=== PATIENT | male | born 1985 | race Caucasian/White ===

== ENCOUNTER 2016-11-05 17:30 | Emergency (ER) | payer MEDICAID ==
[~2016-11-05] VITALS: Ht 175.3 cm; Wt 81.6 kg
[2016-11-05 17:32] VITALS: BP 141/81; PULSE 70; RESP 18; TEMP 98.3; O2SAT 100
[2016-11-05] MEDS ORDERED: ONDANSETRON 4 MG ODT TAB PO ONE (17:45)
[2016-11-05] MEDS ORDERED: ONDANSETRON 4 MG ODT TAB ONE (18:11)
[2016-11-05] MEDS ORDERED: HYDROmorphone 1 MG INJ. 1 MG/ML AMPUL IVP ONE ×2 (18:30→19:30)
[2016-11-05] MEDS ORDERED: ONDANSETRON HCL 4 MG/2 ML VIAL IVP ONE (18:30)
[2016-11-05 18:31] LABS: EOSINOPHILS # (AUTO) 0.1 K/uL (0.0-0.4); HEMATOCRIT 44.8 % (36-54); MEAN CORPUSCULAR HEMOGLOBIN 29 pg (27-31); MONOCYTES # (AUTO) 0.6 K/uL (0.0-1.0); NEUTROPHILS # (AUTO) 7.8 K/uL (1.8-7.7); WHITE BLOOD COUNT (AUTO) 9.7 K/uL (4.8-10.8)
[2016-11-05 18:38] LABS: BASOPHILS # (AUTO) 0.1 K/uL (0.0-0.2); BASOPHILS % (AUTO) 0.9 % (0.0-2.0); CALCIUM 10.1 mg/dL (8.4-11.0); CREATININE 1.17 mg/dL (0.55-1.30); EOSINOPHILS % (AUTO) 0.7 % (0.0-4.0); HEMOGLOBIN 15.1 g/dL (14.0-18.0); LYMPHOCYTES # (AUTO) 1.1 K/uL (1.0-5.5); LYMPHOCYTES % (AUTO) 11.1 % (20.5-51.5); MEAN CORPUSCULAR HGB CONC 34 % (32-36); MEAN CORPUSCULAR VOLUME 87 fL (79.0-98.0); MONOCYTES % (AUTO) 5.9 % (1.7-9.3); NEUTROPHILS % (AUTO) 81.4 % (40.0-70.0); PLATELET COUNT (AUTO) 293 K/uL (130-430); POTASSIUM 3.2 mmol/L (3.5-5.1); RED BLOOD CELL COUNT(AUTO) 5.16 MIL/uL (4.2-6.2); RED CELL DISTRIBUTION WIDTH 12.4 % (9.0-15.0)
[2016-11-05 18:43] LABS: ALBUMIN 5.1 g/dL (3.4-4.8); TOTAL BILIRUBIN 0.8 mg/dL (0.0-1.0); TOTAL PROTEIN, SERUM 8.8 g/dL (6.4-8.3)
[2016-11-05] MEDS ORDERED: NACL 0.9% 1,000 ML IV ONE (20:00)
[2016-11-05] MEDS ORDERED: IOHEXOL 100 ML IV ONE (21:06)
[2016-11-05 21:44] LABS: BILIRUBIN,URINE NEGATIVE (NEGATIVE); BLOOD, URINE 3+ (NEGATIVE); CLARITY/URINE CLEAR (CLEAR); COLOR,URINE YELLOW (YELLOW); GLUCOSE,URINE NEGATIVE (NEGATIVE); KETONES,URINE 3+ (NEGATIVE); LEUKOCYTE ESTERASE ,URINE NEGATIVE (NEGATIVE); NITRITE, URINE NEGATIVE (NEGATIVE); PROTEIN URINE TRACE (NEGATIVE); UROBILINOGEN,URINE 0.2 (0.2-1.0)
[2016-11-05 22:31] LABS: BACTERIA,URINE FEW /HPF (None Seen); MUCUS,URINE 3+ /LPF (None Seen); RBC,URINE 20-50 /HPF (0-3)
[2016-11-05] MEDS ORDERED: CIPROFLOXACIN HCL 500 MG TABLET PO ONE (22:45)
[2016-11-05 22:50] VITALS: BP 121/53; PULSE 108; RESP 18; TEMP 97.7; O2SAT 98
== END 2016-11-05 22:50 | disposition home or self-care (01) ==
LOC: SED 17:30
DX: N50.811 Right testicular pain (principal); R11.2 Nausea with vomiting, unspecified
CPT/HCPCS: 36415; 76870; 80053; 81000; 83690; 85025; 96361; 96374; 96375; 96376; 99285; J1170; J2405; J7030; Q0162; Q9967